=== PATIENT | female | born 1940 | race Caucasian/White ===

== ENCOUNTER 2023-10-11 20:27 | Emergency (ER) | payer MEDICARE ==
[~2023-10-11] VITALS: Ht 152.4 cm; Wt 49.9 kg
[2023-10-11] MEDS: DiphenhydrAMINE HCL 50 MG/ML VIAL IV ONE (21:37)
[2023-10-12 05:32] VITALS: BP 157/79; PULSE 77; RESP 18; O2SAT 98
== END 2023-10-12 05:38 ==
LOC: EDH 20:27
DX: S32.010A Wedge compression fracture of first lumbar vertebra, initial encounter for closed fracture (principal); S32.050A Wedge compression fracture of fifth lumbar vertebra, initial encounter for closed fracture; S00.83XA Contusion of other part of head, initial encounter; I10 Essential (primary) hypertension; E11.9 Type 2 diabetes mellitus without complications; G30.9 Alzheimer's disease, unspecified; F02.80 Dementia in other diseases classified elsewhere, unspecified severity, without behavioral disturbance, psychotic disturbance, mood disturbance, and anxiety; Z88.2 Allergy status to sulfonamides; W18.39XA Other fall on same level, initial encounter; Y93.89 Activity, other specified; Y92.89 Other specified places as the place of occurrence of the external cause; Y99.8 Other external cause status
CPT/HCPCS: 99285; 71045; 72170; 70450; 72125; 71250; 74176; 96374; J1200